=== PATIENT | female | born 1965 | race Caucasian/White ===

== ENCOUNTER 2016-12-03 13:52 | Inpatient (IN) | payer OTHER ==
[2016-12-03 15:13] VITALS: BMI 26.0
--- NOTE | 2016-12-03 16:31 | HP ---
COWS - Scale Resting Pulse: 0= [place] 80 or Below Sweatin=Flushed/Facial Moisture Restless Observation: 3= Extraneous Movement Pupil Size: 2= Moderately Dilated Bone or Joint Aches: 2= Severe Diffuse Aches Runny Nose/ Eye Tearin= Runny Nose/Eyes GI Upset > 30mins: 3= Vomiting/Diarrhea Tremor Observation: 2= Slight Tremor Visible Yawning Observation: 2= >3x During Session Anxiety or Irritability: 2=Irritable/Anxious Goose Flesh Skin: 0=Smooth Skin COWS Score: 20 CIWA Score - CIWA Score Nausea/Vomitin Muscle Tremors: 3 Anxiety: 3 Agitation: 3 Paroxysmal Sweats: 2 Orientation: 0-Oriented Tacttile Disturbances: 2-Mild Itch/Numbness/Burn Auditory Disturbances: 2-Mild Harshness/Frighten Visual Disturbances: 2-Mild Sensitivity Headache: 2-Mild CIWA-Ar Total Score: 22 Admission ROS BHS - HPI Chief Complaint: i need help help to stop using heroin and alcohol Allergies/Adverse Reactions: Allergies Allergy/AdvReac Type Severity Reaction Status Date / Time No Known Allergies Allergy Verified 12/03/16 16:28 History of Present Illness: this 51 years old female with heroin,cocaine and alcohol dependence,seeking detox,last treatment 2014 [facility] hepatitis c nicotine dependence bipolar disorder,depression longest period of sobriety 30 days - Ebola screening Have you traveled outside of the country in the last 21 days: No Have you had contact with anyone from an Ebola affected area: No Have you been sick,other than usual withdrawal symptoms: No Do you have a fever: No - Review of Systems Constitutional: Chills, Diaphoresis, Loss of Appetite, Malaise, Night Sweats, Changes in sleep, Weakness, Unintentional Wgt. Loss EENT: reports: Tearing, Nose Congestion Respiratory: reports: No Symptoms reported, Other (asthma) Cardiac: reports: No Symptoms Reported GI: reports: Nausea, Vomiting, Abdominal cramping : reports: No Symptoms Reported Musculoskeletal: reports: Back Pain, Joint Pain, Muscle Pain, Joint Stiffness Integumentary: reports: Dryness Neuro: reports: Headache, Tremors Endocrine: reports: No Symptoms Reported Hematology: reports: No Symptoms Reported Psychiatric: reports: No Sypmtoms Reported, Judgement Intact, Mood/Affect Appropiate, Orientated x3 (bipolar disorder), Depressed Patient History - Patient Medical History Hx Anemia: No Hx Asthma: Yes (on alnbuterol imhaler) Hx Chronic Obstructive Pulmonary Disease (COPD): No Hx Cancer: No Hx Cardiac Disorders: No Hx Congestive Heart Failure: No Hx Hypertension: No Hx Hypercholesterolemia: No Hx Pacemaker: No HX Cerebrovascular Accident: No Hx Diabetes: No Hx Gastrointestinal Disorders: No Hx Liver Disease: No Hx Genitourinary Disorders: Yes (vaginal discharge 3 days) Hx Sexually Transmitted Disorders: No Hx Renal Disease (ESRD): No Hx Thyroid Disease: No Hx Human Immunodeficiency Virus (HIV): No (last 2015 negative) Hx Hepatitis C: Yes Hx Depression: Yes Hx Suicide Attempt: No Hx Bipolar Disorder: Yes (no med) Hx Schizophrenia: No Other Medical History: no suicidal,no homicidal - Patient Surgical History Past Surgical History: No - PPD History Previous Implant?: Yes Documented Results: Negative w/o proof Implanted On Prior [facility] Admission?: No PPD to be Administered?: Yes - Reproductive History Patient is a Female of Child Bearing Age (11 -55 yrs old): Yes Last Menstrual Period: 11/23/16 Patient : No - Smoking Cessation Smoking history: Current every day smoker Have you smoked in the past 12 months: Yes Cigars Per Day: 10 Hx Chewing Tobacco Use: No Initiated information on smoking cessation: Yes 'Breaking Loose' booklet given: 12/03/16 - Substance & Tx. History Hx Alcohol Use: Yes Hx Substance Use: Yes Substance Use Type: Alcohol, Cocaine, Heroin Hx Substance Use Treatment: Yes ([facility] 2014) - Substances Abused Heroin Route: Inhalation Frequency: Daily Amount used: 4 bags Age of first use: 19 Date of Last Use: 12/03/16 Alcohol Route: Oral Frequency: Daily Amount used: 1pint of vodka/3 of 40 ozs of beer Age of first use: 16 Date of Last Use: 12/03/16 Cocaine Route: Smoking Frequency: Daily Amount used: 100$ Age of first use: 35 Date of Last Use: 12/03/16 Family Disease History - Family Disease History Family Disease History: Other: Brother (dsa) Admission Physical Exam BHS - Vital Signs Vital Signs: Vital Signs - 24 hr 12/03/16 15:10 Temperature 96.1 F L Pulse Rate 58 L Respiratory 18 Rate Blood Pressure 127/68 - Physical General Appearance: Yes: Moderate Distress, Tremorous, Irritable, Sweating, Anxious HEENTM: Yes: Normal ENT Inspection, ZITA, Pharynx Normal Respiratory: Yes: Lungs Clear, Normal Breath Sounds, No Respiratory Distress Neck: Yes: Within Normal Limits, Supple, Trachea in good position Breast: Yes: Within Normal Limits Abdominal: Yes: Within Normal Limits, Normal Bowel Sounds, Flat, Soft, Increased Bowel Sounds Genitourinary: Yes: Within Normal Limits Back: Yes: Muscle Spasm Musculoskeletal: Yes: Back pain, Joint Stiffness, Muscle Pain Extremities: Yes: Within Normal Limits (pain in right knee), Normal Range of Motion, Tremors Neurological: Yes: pet house sitter II-XII NML intact, Fully Oriented, Alert, Motor Strength 5/5 Integumentary: Yes: Dry Lymphatic: Yes: Within Normal Limits - Diagnostic (1) Opioid dependence with withdrawal Current Visit: Yes Status: Acute (2) Alcohol dependence with uncomplicated withdrawal Current Visit: Yes Status: Acute (3) Hepatitis C Current Visit: Yes Status: Acute (4) Bipolar 1 disorder, depressed Current Visit: Yes Status: Acute (5) Asthma Current Visit: Yes Status: Acute (6) Weight loss Current Visit: Yes Status: Acute (7) Arthritis of right knee Current Visit: Yes Status: Acute (8) Vaginitis Current Visit: Yes Status: Acute Cleared for Admission [facility] - Detox or Rehab [facility] Level of Care: Medically Managed Detox Regimen/Protocol: Methadone/Librium [facility] Breath Alcohol Content Breath Alcohol Content: 0 Urine Pregancy Test - Result Urine Test Results: Negative- NO Line Present Urine Drug Screen - Results Drug Screen Negative: No Urine Drug Screen Results: LELE-Cocaine, OPI-Opiates
[2016-12-03] MEDS ORDERED: MAGNESIUM HYDROX 2400MG/30ML ORAL SUSPENSION 30 ML CUP PO PRN (16:51)
[2016-12-03] MEDS ORDERED: MAGNESIUM CITRATE 300 ML BOTTLE PO PRN (16:51)
[2016-12-03] MEDS ORDERED: P-EPHED 60MG/TRIPROLIDI 2.5MG TABLET PO PRN (16:51)
[2016-12-03] MEDS ORDERED: chlordiazePOXIDE HCL 25 MG CAPSULE PO PRN (16:51)
[2016-12-03] MEDS ORDERED: hydrOXYzine PAMOATE 25 MG CAPSULE (FP) PO PRN (16:51)
[2016-12-03] MEDS ORDERED: IBUPROFEN 400 MG TABLET (FP) PO PRN (16:51)
[2016-12-03] MEDS ORDERED: diphenhydrAMINE HCL 50 MG CAPSULE PO PRN (16:51)
[2016-12-03] MEDS ORDERED: LOPERAMIDE HCL 2 MG CAPSULE PO PRN (16:51)
[2016-12-03] MEDS ORDERED: MAG HYDROX/AL HYDROX/SIMETH 30 ML UNIT-DOSE CUP PO PRN (16:51)
[2016-12-03] MEDS ORDERED: guaiFENesin/D-METHORPHAN HB 10 ML UNIT-DOSE CUPS PO PRN (16:51)
[2016-12-03] MEDS ORDERED: ACETAMINOPHEN 325 MG TABLET (FP) PO PRN (16:51)
[2016-12-03] MEDS ORDERED: MENTHOL/PHENOL 1 EACH UD MM PRN (16:51)
[2016-12-03] MEDS ORDERED: chlordiazePOXIDE HCL 25 MG CAPSULE PO ONE (17:30)
[2016-12-03] MEDS ORDERED: METHADONE HCL 10 MG TABLET (FOR DETOX USE ONLY) PO ONE ×2 (17:30→23:00)
[2016-12-03] MEDS ORDERED: FLUCONAZOLE 50 MG TABLET PO ONE (17:30)
[2016-12-03] MEDS: NICOTINE 21 MG/24 HOURS TOPICAL PATCH TD SCH (19:09)
[2016-12-03] MEDS: CYCLOBENZAPRINE HCL 10 MG TABLET (FP) PO PRN (22:08)
[2016-12-03] MEDS: THIAMINE HCL 100 MG TABLET (FP) PO SCH (22:08)
[2016-12-03] MEDS: chlordiazePOXIDE HCL 25 MG CAPSULE PO SCH (22:08)
[2016-12-03] MEDS: MICONAZOLE NITRATE 100 MG SUPP SUPP.VAG PV SCH (22:55)
[2016-12-03 23:54] LABS: URINE APPEARANCE SLCLOUDY; URINE BILIRUBIN NEGATIVE (NEGATIVE); URINE BLOOD NEGATIVE (NEGATIVE); URINE COLOR YELLOW; URINE GLUCOSE (UA) NEGATIVE (NEGATIVE); URINE KETONE NEGATIVE (NEGATIVE); URINE LEUK ESTERASE TRACE (NEGATIVE); URINE NITRITE NEGATIVE (NEGATIVE); URINE PROTEIN NEGATIVE (NEGATIVE); URINE UROBILINOGEN NEGATIVE mg/dL (0.2-1.0)
[2016-12-04 00:04] LABS: URINE BACTERIA RARE /hpf (NONE SEEN); URINE MUCUS RARE; URINE RBC 8 /hpf (0-3); URINE WBC 7 /hpf (3-5)
[2016-12-04] MEDS: chlordiazePOXIDE HCL 25 MG CAPSULE PO SCH ×4 (05:54→22:35)
[2016-12-04] MEDS ORDERED: METHADONE HCL 10 MG TABLET (FOR DETOX USE ONLY) PO SCH (10:00)
[2016-12-04] MEDS: PRENATAL VITAMINS W/ FOLIC ACID TABLET (FP) PO SCH (10:16)
[2016-12-04] MEDS: NICOTINE 21 MG/24 HOURS TOPICAL PATCH TD SCH (10:17)
[2016-12-04 10:31] LABS: MCH 27.7 pg (25.7-33.7); MEAN CELL VOLUME 84.1 fl (80-96); MEAN PLT VOLUME 8.1 fl (7.5-11.1); PLATELET COUNT 247 K/MM3 (134-434); RDW 14.8 % (11.6-15.6); WHITE BLOOD COUNT 6.5 K/mm3 (4.0-10.0)
[2016-12-04 10:52] LABS: ALBUMIN 2.8 g/dl (3.4-5.0); ALK PHOS 70 U/L (45-117); ANION GAP 6 (8-16); BILIRUBIN,TOTAL 0.7 mg/dL (0.2-1.0); CALCIUM 8.4 mg/dL (8.5-10.1); CO2 28 mmol/L (21-32); CREATININE 0.6 mg/dL (0.55-1.02); GLUCOSE,RANDOM 99 mg/dL (74-106); SGOT/AST 9 U/L (15-37); SGPT/ALT 17 U/L (12-78); TOT PROT 5.1 g/dl (6.4-8.2)
[2016-12-04 11:06] LABS: HIV 1 & 2 AB NEGATIVE; HIV 1 AGp24 NEGATIVE
--- NOTE | 2016-12-04 14:01 | PN ---
[facility] CIWA - CIWA Score Nausea/Vomitin-No Nausea/No Vomiting Muscle Tremors: 4-Moderate,w/Arms Extend Anxiety: 3 Agitation: 3 Paroxysmal Sweats: 3 Orientation: 0-Oriented Tacttile Disturbances: 0-None Auditory Disturbances: 0-None Visual Disturbances: 0-None Headache: 0-None Present CIWA-Ar Total Score: 13 BHS COWS - Scale Resting Pulse: 0= [place] 80 or Below Sweatin=Flushed/Facial Moisture Restless Observation: 1= Difficult to Sit Still Pupil Size: 0= Normal to Room Light Bone or Joint Aches: 1= Mild Discomfort Runny Nose/ Eye Tearin= Runny Nose/Eyes GI Upset > 30mins: 2= Nausea/Diarrhea Tremor Observation of Outstretched Hands: 2= Slight Tremor Visible Yawning Observation: 1= 1-2x During Session Anxiety or Irritability: 2=Irritable/Anxious Goose Flesh Skin: 0=Smooth Skin COWS Score: 13 [facility] Progress Note (SOAP) Subjective: Anxiety,sweating,nausea,muscle aches,restless Objective: 12/04/16 14:00 Vital Signs - 8 hr 12/04/16 10:00 Temperature 98.1 F Pulse Rate 62 Respiratory 18 Rate Blood Pressure 95/64 Laboratory Last Values WBC 6.5 K/mm3 (4.0-10.0) 12/04/16 07:45 RBC 4.50 M/mm3 (3.60-5.2) 12/04/16 07:45 Hgb 12.5 GM/dL (10.7-15.3) 12/04/16 07:45 Hct 37.8 % (32.4-45.2) 12/04/16 07:45 MCV 84.1 fl (80-96) 12/04/16 07:45 MCH 27.7 pg (25.7-33.7) 12/04/16 07:45 MCHC 33.0 g/dl (32.0-36.0) 12/04/16 07:45 RDW 14.8 % (11.6-15.6) 12/04/16 07:45 Plt Count 247 K/MM3 (134-434) 12/04/16 07:45 MPV 8.1 fl (7.5-11.1) 12/04/16 07:45 Sodium 141 mmol/L (136-145) 12/04/16 07:45 Potassium 3.8 mmol/L (3.5-5.1) 12/04/16 07:45 Chloride 107 mmol/L (98-107) 12/04/16 07:45 Carbon Dioxide 28 mmol/L (21-32) 12/04/16 07:45 Anion Gap 6 (8-16) L 12/04/16 07:45 BUN 20 mg/dL (7-18) H 12/04/16 07:45 Creatinine 0.6 mg/dL (0.55-1.02) 12/04/16 07:45 Creat Clearance w eGFR > 60 (>60) 12/04/16 07:45 Random Glucose 99 mg/dL (74-106) 12/04/16 07:45 Calcium 8.4 mg/dL (8.5-10.1) L 12/04/16 07:45 Total Bilirubin 0.7 mg/dL (0.2-1.0) 12/04/16 07:45 AST 9 U/L (15-37) L 12/04/16 07:45 ALT 17 U/L (12-78) 12/04/16 07:45 Alkaline Phosphatase 70 U/L (45-117) 12/04/16 07:45 Total Protein 5.1 g/dl (6.4-8.2) L 12/04/16 07:45 Albumin 2.8 g/dl (3.4-5.0) L 12/04/16 07:45 Urine Color Yellow 12/03/16 23:35 Urine Appearance Slcloudy 12/03/16 23:35 Urine pH 6.0 (5.0-8.0) 12/03/16 23:35 Ur Specific [place] 1.025 (1.005-1.025) 12/03/16 23:35 Urine Protein Negative (NEGATIVE) 12/03/16 23:35 Urine Glucose (UA) Negative (NEGATIVE) 12/03/16 23:35 Urine Ketones Negative (NEGATIVE) 12/03/16 23:35 Urine Blood Negative (NEGATIVE) 12/03/16 23:35 Urine Nitrite Negative (NEGATIVE) 12/03/16 23:35 Urine Bilirubin Negative (NEGATIVE) 12/03/16 23:35 Urine Urobilinogen Negative mg/dL (0.2-1.0) 12/03/16 23:35 Ur Leukocyte Esterase Trace (NEGATIVE) 12/03/16 23:35 Urine RBC 8 /hpf (0-3) 12/03/16 23:35 Urine WBC 7 /hpf (3-5) 12/03/16 23:35 Ur Epithelial Cells Rare /hpf (FEW) 12/03/16 23:35 Urine Bacteria Rare /hpf (NONE SEEN) 12/03/16 23:35 Urine Mucus Rare 12/03/16 23:35 RPR Titer Nonreactive (NONREACTIVE) 12/04/16 07:45 HIV 1&2 Antibody Screen Negative 12/04/16 07:45 HIV P24 Antigen Negative 12/04/16 07:45 labs noted Assessment: 12/04/16 14:00 Withdrawal sx. Plan: Continue detox
--- NOTE | 2016-12-04 17:22 | CONSULT ---
[facility] Psychiatric Consult - Data Date of interview: 12/04/16 Admission source: [facility] Identifying data: First admission to [facility] for this 51 y/o female seeking detox treatment on for heroin,cocaine and alcohol dependence.Patient is single,a mother of three,domiciled,unemployed and supported on food stamps. Substance Abuse History: Discussed with patient.Ms Bocanegraconfirms this [facility] report. Smoking Cessation. Smoking history: Current every day smoker. Have you smoked in the past 12 months: Yes. Cigars Per Day: 10. Hx Chewing Tobacco Use: No. Initiated information on smoking cessation: Yes. 'Breaking Loose' booklet given: 12/03/16. - Substance & Tx. History. Hx Alcohol Use: Yes. Hx Substance Use: Yes. Substance Use Type: Alcohol, Cocaine, Heroin. Hx Substance Use Treatment: Yes ([facility] bojor[facility] 2015). - Substances Abused. Heroin. Route: Inhalation. Frequency: Daily. Amount used: 4 bags. Age of first use: 19. Date of Last Use: 12/03/16. Alcohol. Route: Oral. Frequency: Daily. Amount used: 1pint of vodka/3 of 40 ozs of beer. Age of first use: 16. Date of Last Use: 12/03/16. Cocaine. Route: Smoking. Frequency: Daily. Amount used: 100$. Age of first use: 35. Date of Last Use: 12/03/16 Medical History: Hepatitis C and bronchial asthma. Psychiatric History: Patient denies. Physical/Sexual Abuse/Trauma History: Patient denies. Additional Comment: Urine Drug Screen Results: LELE-Cocaine, OPI-Opiates.Noted. Mental Status Exam - Mental Status Exam Alert and Oriented to: Time, Place, Person Cognitive Function: Good Patient Appearance: Well Groomed Mood: Hopeful, Euthymic Affect: Appropriate, Normal Range Patient Behavior: Fatigued, Cooperative Speech Pattern: Clear Voice Loudness: Normal Thought Process: Intact, Goal Oriented Thought Disorder: Not Present Hallucinations: Denies Suicidal Ideation: Denies Homicidal Ideation: Denies Insight/Judgement: Poor Sleep: Poorly, Difficulty falling asleep Appetite: Good Muscle strength/Tone: Normal Gait/Station: Normal Psychiatric Findings - Problem List ([place] 1, 2,3) (1) Alcohol dependence with uncomplicated withdrawal Current Visit: Yes Status: Acute (2) Opioid dependence with withdrawal Current Visit: Yes Status: Acute (3) Cocaine dependence Current Visit: Yes Status: Acute (4) Nicotine dependence Current Visit: Yes Status: Acute (5) Substance induced mood disorder Current Visit: Yes Status: Acute (6) Arthritis of right knee Current Visit: Yes Status: Chronic (7) Asthma Current Visit: Yes Status: Chronic (8) Hepatitis C Current Visit: Yes Status: Chronic (9) Insomnia Current Visit: Yes Status: Acute - Initial Treatment Plan Initial Treatment Plan: Psychoeducation.Detoxification.Ambien 5 mg po hs.Side effects/benefits discussed with the patient.She agrees with this careplan.Observation.No other psychotropic medication is clinically justified ( vague mention of abilify by the patient ; admits to non-adherence for more than three years).Reconciliation : no known home medications.
[2016-12-04] MEDS: ZOLPIDEM TARTRATE 5 MG TABLET PO SCH (22:35)
[2016-12-04] MEDS: CYCLOBENZAPRINE HCL 10 MG TABLET (FP) PO PRN (22:35)
[2016-12-04] MEDS: MICONAZOLE NITRATE 100 MG SUPP SUPP.VAG PV SCH (22:36)
[2016-12-04] MEDS: THIAMINE HCL 100 MG TABLET (FP) PO SCH (22:36)
[2016-12-05] MEDS: chlordiazePOXIDE HCL 25 MG CAPSULE PO SCH ×3 (06:13→17:40)
[2016-12-05] MEDS: METHADONE HCL 5 MG TABLET (FOR DETOX USE ONLY) PO SCH (10:20)
[2016-12-05] MEDS: PRENATAL VITAMINS W/ FOLIC ACID TABLET (FP) PO SCH (10:20)
[2016-12-05] MEDS: NICOTINE 21 MG/24 HOURS TOPICAL PATCH TD SCH (10:21)
[2016-12-05] MEDS: CYCLOBENZAPRINE HCL 10 MG TABLET (FP) PO PRN ×2 (10:21→22:23)
--- NOTE | 2016-12-05 13:59 | EKG ---
Test Reason : Blood Pressure : / mmHG Vent. Rate : 061 BPM Atrial Rate : 061 BPM P-R Int : 100 ms QRS Dur : 076 ms QT Int : 474 ms P-R-T Axes : 070 071 043 degrees QTc Int : 477 ms SINUS RHYTHM WITH SHORT VA OTHERWISE NORMAL ECG NO PREVIOUS ECGS AVAILABLE CLINICAL CORRELATION IS RECOMMENDED Confirmed by APOLLO BETTS MD ([id number]) on 12/05/2016 1:59:42 PM Referred By: Confirmed By:APOLLO BETTS MD
--- NOTE | 2016-12-05 17:26 | PN ---
[facility] CIWA - CIWA Score Nausea/Vomitin-No Nausea/No Vomiting Muscle Tremors: 3 Anxiety: 4-Mod. Anxious/Guarded Agitation: 4-Moderately Restless Paroxysmal Sweats: 3 Orientation: 0-Oriented Tacttile Disturbances: 0-None Auditory Disturbances: 0-None Visual Disturbances: 0-None Headache: 0-None Present CIWA-Ar Total Score: 14 S COWS - Scale Resting Pulse: 1= [place] 81-100 Sweatin=Flushed/Facial Moisture Restless Observation: 1= Difficult to Sit Still Pupil Size: 0= Normal to Room Light Bone or Joint Aches: 1= Mild Discomfort Runny Nose/ Eye Tearin= Runny Nose/Eyes GI Upset > 30mins: 2= Nausea/Diarrhea Tremor Observation of Outstretched Hands: 2= Slight Tremor Visible Yawning Observation: 1= 1-2x During Session Anxiety or Irritability: 2=Irritable/Anxious Goose Flesh Skin: 0=Smooth Skin COWS Score: 14 [facility] Progress Note (SOAP) Subjective: Anxiety,tremors,sweating,interrupted sleep,body aches Objective: 12/05/16 17:24 Vital Signs - 8 hr 12/05/16 14:43 Temperature 98.2 F Pulse Rate 82 Respiratory 16 Rate Blood Pressure 120/75 Laboratory Last Values WBC 6.5 K/mm3 (4.0-10.0) 12/04/16 07:45 RBC 4.50 M/mm3 (3.60-5.2) 12/04/16 07:45 Hgb 12.5 GM/dL (10.7-15.3) 12/04/16 07:45 Hct 37.8 % (32.4-45.2) 12/04/16 07:45 MCV 84.1 fl (80-96) 12/04/16 07:45 MCH 27.7 pg (25.7-33.7) 12/04/16 07:45 MCHC 33.0 g/dl (32.0-36.0) 12/04/16 07:45 RDW 14.8 % (11.6-15.6) 12/04/16 07:45 Plt Count 247 K/MM3 (134-434) 12/04/16 07:45 MPV 8.1 fl (7.5-11.1) 12/04/16 07:45 Sodium 141 mmol/L (136-145) 12/04/16 07:45 Potassium 3.8 mmol/L (3.5-5.1) 12/04/16 07:45 Chloride 107 mmol/L (98-107) 12/04/16 07:45 Carbon Dioxide 28 mmol/L (21-32) 12/04/16 07:45 Anion Gap 6 (8-16) L 12/04/16 07:45 BUN 20 mg/dL (7-18) H 12/04/16 07:45 Creatinine 0.6 mg/dL (0.55-1.02) 12/04/16 07:45 Creat Clearance w eGFR > 60 (>60) 12/04/16 07:45 Random Glucose 99 mg/dL (74-106) 12/04/16 07:45 Calcium 8.4 mg/dL (8.5-10.1) L 12/04/16 07:45 Total Bilirubin 0.7 mg/dL (0.2-1.0) 12/04/16 07:45 AST 9 U/L (15-37) L 12/04/16 07:45 ALT 17 U/L (12-78) 12/04/16 07:45 Alkaline Phosphatase 70 U/L (45-117) 12/04/16 07:45 Total Protein 5.1 g/dl (6.4-8.2) L 12/04/16 07:45 Albumin 2.8 g/dl (3.4-5.0) L 12/04/16 07:45 Urine Color Yellow 12/03/16 23:35 Urine Appearance Slcloudy 12/03/16 23:35 Urine pH 6.0 (5.0-8.0) 12/03/16 23:35 Ur Specific [place] 1.025 (1.005-1.025) 12/03/16 23:35 Urine Protein Negative (NEGATIVE) 12/03/16 23:35 Urine Glucose (UA) Negative (NEGATIVE) 12/03/16 23:35 Urine Ketones Negative (NEGATIVE) 12/03/16 23:35 Urine Blood Negative (NEGATIVE) 12/03/16 23:35 Urine Nitrite Negative (NEGATIVE) 12/03/16 23:35 Urine Bilirubin Negative (NEGATIVE) 12/03/16 23:35 Urine Urobilinogen Negative mg/dL (0.2-1.0) 12/03/16 23:35 Ur Leukocyte Esterase Trace (NEGATIVE) 12/03/16 23:35 Urine RBC 8 /hpf (0-3) 12/03/16 23:35 Urine WBC 7 /hpf (3-5) 12/03/16 23:35 Ur Epithelial Cells Rare /hpf (FEW) 12/03/16 23:35 Urine Bacteria Rare /hpf (NONE SEEN) 12/03/16 23:35 Urine Mucus Rare 12/03/16 23:35 RPR Titer Nonreactive (NONREACTIVE) 12/04/16 07:45 HIV 1&2 Antibody Screen Negative 12/04/16 07:45 HIV P24 Antigen Negative 12/04/16 07:45 labs noted Assessment: 12/05/16 17:25 Withdrawal sx. Plan: Continue detox
[2016-12-05] MEDS: ZOLPIDEM TARTRATE 5 MG TABLET PO SCH (22:23)
[2016-12-05] MEDS: THIAMINE HCL 100 MG TABLET (FP) PO SCH (22:23)
[2016-12-05] MEDS: chlordiazePOXIDE 5 MG CAPSULE PO SCH (22:23)
[2016-12-05] MEDS: MICONAZOLE NITRATE 100 MG SUPP SUPP.VAG PV SCH (22:24)
[2016-12-06] MEDS: chlordiazePOXIDE 5 MG CAPSULE PO SCH ×3 (05:21→17:44)
[2016-12-06] MEDS: METHADONE HCL 5 MG TABLET (FOR DETOX USE ONLY) PO SCH (10:26)
[2016-12-06] MEDS: PRENATAL VITAMINS W/ FOLIC ACID TABLET (FP) PO SCH (10:26)
[2016-12-06] MEDS: NICOTINE 21 MG/24 HOURS TOPICAL PATCH TD SCH (10:27)
[2016-12-06] MEDS: CYCLOBENZAPRINE HCL 10 MG TABLET (FP) PO PRN ×2 (10:28→22:38)
--- NOTE | 2016-12-06 11:08 | PN ---
[facility] Progress Note (SOAP) Subjective: sweats shoulder pain agitation anxiety interrupted sleep Objective: 12/06/16 11:06 Vital Signs Temperature 98.1 F 12/06/16 10:21 Pulse Rate 77 12/06/16 10:21 Respiratory Rate 18 12/06/16 10:21 Blood Pressure 114/70 12/06/16 10:21 O2 Sat by Pulse Oximetry (%) awake/alert ambulating no acute distress Assessment: 12/06/16 11:07 withdrawal sx Plan: continue detox increase fluids motrin 600mg prn lidocaine patch to apply to shoulder analgesic balm prn
[2016-12-06] MEDS: METHYL SALICYLATE/MENTHOL OINT 30 GM TUBE TP SCH (12:22)
[2016-12-06] MEDS: LIDOCAINE 5% TOPICAL PATCH TP SCH (12:22)
[2016-12-06] MEDS: IBUPROFEN 600 MG TABLET (FP) PO PRN (22:37)
[2016-12-06] MEDS: THIAMINE HCL 100 MG TABLET (FP) PO SCH (22:37)
[2016-12-06] MEDS: ZOLPIDEM TARTRATE 5 MG TABLET PO SCH (22:37)
[2016-12-06] MEDS: chlordiazePOXIDE HCL 10 MG CAPSULE PO SCH (22:37)
[2016-12-06] MEDS: MICONAZOLE NITRATE 100 MG SUPP SUPP.VAG PV SCH (22:38)
[2016-12-06] MEDS: LIDOCAINE PATCH REMOVAL MC SCH (22:38)
[2016-12-07] MEDS: chlordiazePOXIDE HCL 10 MG CAPSULE PO SCH ×3 (05:45→17:22)
[2016-12-07] MEDS ORDERED: METHADONE HCL 10 MG TABLET (FOR DETOX USE ONLY) PO SCH (10:00)
[2016-12-07] MEDS: LIDOCAINE 5% TOPICAL PATCH TP SCH (10:22)
[2016-12-07] MEDS: PRENATAL VITAMINS W/ FOLIC ACID TABLET (FP) PO SCH (10:22)
[2016-12-07] MEDS: METHYL SALICYLATE/MENTHOL OINT 30 GM TUBE TP SCH (10:23)
[2016-12-07] MEDS: NICOTINE 21 MG/24 HOURS TOPICAL PATCH TD SCH (10:23)
[2016-12-07] MEDS: IBUPROFEN 600 MG TABLET (FP) PO PRN ×2 (10:28→22:11)
[2016-12-07] MEDS: LIDOCAINE PATCH REMOVAL MC SCH (22:10)
[2016-12-07] MEDS: CYCLOBENZAPRINE HCL 10 MG TABLET (FP) PO PRN (22:10)
[2016-12-07] MEDS: ZOLPIDEM TARTRATE 5 MG TABLET PO SCH (22:10)
[2016-12-07] MEDS: MICONAZOLE NITRATE 100 MG SUPP SUPP.VAG PV SCH (22:11)
[2016-12-07] MEDS: THIAMINE HCL 100 MG TABLET (FP) PO SCH (22:11)
[2016-12-08] MEDS ORDERED: METHADONE HCL 5 MG TABLET (FOR DETOX USE ONLY) PO SCH (06:00)
--- NOTE | 2016-12-08 08:36 | DS ---
[facility] Detox Discharge Summary Admission Date: 12/03/16 Discharge Date: 12/08/16 - History Present History: Alcohol Dependence, Cocaine Dependence - Physical Exam Results Vital Signs: Vital Signs Temperature 97 F L 12/08/16 06:22 Pulse Rate 73 12/08/16 06:22 Respiratory Rate 18 12/08/16 06:22 Blood Pressure 119/71 12/08/16 06:22 O2 Sat by Pulse Oximetry (%) - Treatment Hospital Course: Detox Protocol Followed, Detoxed Safely, Responded well, Discharged Condition Good, Rehab Referral Accepted - Medication Discharge Medications: Ambulatory Orders NK [No Known Home Medication] 12/03/16 - Diagnosis (1) Alcohol dependence with uncomplicated withdrawal Current Visit: Yes Status: Chronic (2) Bipolar 1 disorder, depressed Current Visit: Yes Status: Acute (3) Cocaine dependence Current Visit: Yes Status: Chronic Qualifiers: Substance use status: uncomplicated Qualified Code(s): F14.20 - Cocaine dependence, uncomplicated (4) Insomnia Current Visit: Yes Status: Acute (5) Nicotine dependence Current Visit: Yes Status: Chronic Qualifiers: Nicotine product type: cigarettes (6) Opioid dependence with withdrawal Current Visit: Yes Status: Chronic (7) Substance induced mood disorder Current Visit: Yes Status: Acute (8) Vaginitis Current Visit: Yes Status: Resolved Qualifiers: Chronicity: chronic Qualified Code(s): N76.1 - Subacute and chronic vaginitis (9) Weight loss Current Visit: Yes Status: Acute (10) Arthritis of right knee Current Visit: Yes Status: Chronic (11) Asthma Current Visit: Yes Status: Chronic Qualifiers: Asthma severity: mild intermittent (12) Hepatitis C Current Visit: Yes Status: Chronic Qualifiers: Viral hepatitis chronicity: chronic Hepatic coma status: without hepatic coma Qualified Code(s): B18.2 - Chronic viral hepatitis C - AMA Did Patient Leave Against Medical Advice: No
[2016-12-08] MEDS: NICOTINE 21 MG/24 HOURS TOPICAL PATCH TD SCH (10:42)
[2016-12-08] MEDS: PRENATAL VITAMINS W/ FOLIC ACID TABLET (FP) PO SCH (10:42)
[2016-12-08] MEDS: LIDOCAINE 5% TOPICAL PATCH TP SCH (10:43)
[2016-12-08] MEDS: METHYL SALICYLATE/MENTHOL OINT 30 GM TUBE TP SCH (10:43)
[2016-12-08 14:52] VITALS: BP 119/78; PULSE 98; TEMP 98.1
== END 2016-12-08 14:21 | disposition other institution (70) | DRG 773 ==
LOC: YASAS 13:52 → Y6N 17:07
PROVIDERS: ADMIT Internal Medicine; ATTEND Internal Medicine
PROC: HZ2ZZZZ Detoxification Services for Substance Abuse Treatment (ICD-10-PCS; principal; 2016-12-03)
DX: F11.23 Opioid dependence with withdrawal (principal); F10.230 Alcohol dependence with withdrawal, uncomplicated; F14.20 Cocaine dependence, uncomplicated; F17.210 Nicotine dependence, cigarettes, uncomplicated; F31.9 Bipolar disorder, unspecified; F19.24 Other psychoactive substance dependence with psychoactive substance-induced mood disorder; G47.00 Insomnia, unspecified; N76.1 Subacute and chronic vaginitis; B18.2 Chronic viral hepatitis C; M13.861 Other specified arthritis, right knee; Z87.898 Personal history of other specified conditions
CPT/HCPCS: 36415; 80053; 81003; 81015; 85027; 86593; 87389; 93005; 93010

== ENCOUNTER 2016-12-08 14:22 | Inpatient (IN) | payer OTHER ==
[2016-12-08 15:27] VITALS: BMI 29.8
[2016-12-08] MEDS ORDERED: LOPERAMIDE HCL 2 MG CAPSULE PO PRN ×2 (16:08→16:09)
[2016-12-08] MEDS ORDERED: MAG HYDROX/AL HYDROX/SIMETH 30 ML UNIT-DOSE CUP PO PRN ×2 (16:08→16:09)
[2016-12-08] MEDS ORDERED: P-EPHED 60MG/TRIPROLIDI 2.5MG TABLET PO PRN ×2 (16:08→16:09)
[2016-12-08] MEDS ORDERED: MAGNESIUM HYDROX 2400MG/30ML ORAL SUSPENSION 30 ML CUP PO PRN ×2 (16:08→16:09)
[2016-12-08] MEDS ORDERED: diphenhydrAMINE HCL 50 MG CAPSULE PO PRN (16:08)
[2016-12-08] MEDS ORDERED: hydrOXYzine PAMOATE 50 MG CAPSULE (FP) PO PRN (16:08)
[2016-12-08] MEDS ORDERED: MENTHOL/PHENOL 1 EACH UD MM PRN ×2 (16:08→16:09)
[2016-12-08] MEDS ORDERED: guaiFENesin/D-METHORPHAN HB 10 ML UNIT-DOSE CUPS PO PRN ×2 (16:08→16:09)
[2016-12-08] MEDS ORDERED: IBUPROFEN 400 MG TABLET (FP) PO PRN ×2 (16:08→16:09)
[2016-12-08] MEDS ORDERED: ACETAMINOPHEN 325 MG TABLET (FP) PO PRN ×2 (16:08→16:09)
[2016-12-08] MEDS ORDERED: MAGNESIUM CITRATE 300 ML BOTTLE PO PRN ×2 (16:08→16:09)
--- NOTE | 2016-12-08 16:09 | HP ---
[facility] Re[facility] Assess/Revision - Admission History Admitted to Rehab from: [facility] [place] Date of Admission to Rehab: 12/08/16 - Vital signs Vital Signs: Vital Signs Period Temp Pulse Resp BP Sys/Cuellar Pulse Ox Last 24 Hr 98.4 F-98.4 F 91-91 18-18 111-111/67-67 - Findings Detox History & Physical reviewed: Yes Concur with findings: Yes Comments/Additional Findings: TRANSFERRED FROM DETOX TO REHAB ADMISSION PER PROTOCOL
[2016-12-08] MEDS: diphenhydrAMINE HCL 50 MG CAPSULE PO PRN (21:20)
[2016-12-08] MEDS: THIAMINE HCL 100 MG TABLET (FP) PO SCH (21:20)
[2016-12-08] MEDS ORDERED: THIAMINE HCL 100 MG TABLET (FP) PO SCH (22:00)
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
[2016-12-09] MEDS: NICOTINE 21 MG/24 HOURS TOPICAL PATCH TD SCH (09:56)
[2016-12-09] MEDS: PRENATAL VITAMINS W/ FOLIC ACID TABLET (FP) PO SCH (09:56)
[2016-12-09] MEDS ORDERED: PRENATAL VITAMINS W/ FOLIC ACID TABLET (FP) PO SCH (10:00)
[2016-12-09] MEDS: THIAMINE HCL 100 MG TABLET (FP) PO SCH (21:43)
[2016-12-09] MEDS ORDERED: SUVOREXANT 10 MG TABLET PO PRN (22:00)
[2016-12-10] MEDS: PRENATAL VITAMINS W/ FOLIC ACID TABLET (FP) PO SCH (10:20)
[2016-12-10] MEDS: NICOTINE 21 MG/24 HOURS TOPICAL PATCH TD SCH (10:20)
--- NOTE | 2016-12-10 12:41 | PN ---
S Progress Note Note: vaginitis will give flagyl 500 mgs po tid for 7days
[2016-12-10] MEDS: metroNIDAZOLE 250 MG TABLET PO SCH ×2 (15:00→21:55)
[2016-12-10] MEDS: THIAMINE HCL 100 MG TABLET (FP) PO SCH (21:54)
[2016-12-10] MEDS: diphenhydrAMINE HCL 50 MG CAPSULE PO PRN (21:55)
[2016-12-11] MEDS: metroNIDAZOLE 250 MG TABLET PO SCH ×2 (06:21→14:24)
[2016-12-11 06:50] VITALS: BP 118/80; PULSE 69; TEMP 98.5
[2016-12-11] MEDS: NICOTINE 21 MG/24 HOURS TOPICAL PATCH TD SCH (10:25)
[2016-12-11] MEDS: PRENATAL VITAMINS W/ FOLIC ACID TABLET (FP) PO SCH (10:25)
--- NOTE | 2016-12-11 20:23 | PN ---
S Progress Note Note: patient did not want to complete treatment,seen by counselor,signed release ama, psychiatrist electronics teacher notified jena nurse
== END 2016-12-11 19:10 | disposition left against medical advice (07) | DRG 770 ==
LOC: YASAS 14:22 → Y3W 14:24
PROVIDERS: ADMIT Psychiatry & Neurology Psychiatry; ATTEND Psychiatry & Neurology Psychiatry
PROC: HZ42ZZZ Group Counseling for Substance Abuse Treatment, Cognitive-Behavioral (ICD-10-PCS; principal; 2016-12-08)
DX: F11.20 Opioid dependence, uncomplicated (principal); F10.20 Alcohol dependence, uncomplicated; F14.20 Cocaine dependence, uncomplicated; F17.210 Nicotine dependence, cigarettes, uncomplicated; F39 Unspecified mood [affective] disorder; F31.9 Bipolar disorder, unspecified; F19.282 Other psychoactive substance dependence with psychoactive substance-induced sleep disorder; J45.909 Unspecified asthma, uncomplicated; B18.2 Chronic viral hepatitis C; M13.861 Other specified arthritis, right knee; N76.0 Acute vaginitis